=== PATIENT | female | born 1970 ===

== ENCOUNTER 2020-04-24 12:45 | Emergency (ER) | payer MEDICAID ==
[2020-04-24 12:55] VITALS: BP 154/86; PULSE 108
--- NOTE | 2020-04-24 13:10 | EDM.PDOC ---
ED HPI GENERAL MEDICAL PROBLEM - General Chief Complaint: Chest Pain Stated Complaint: COVID SYMPTOMS Time Seen by Provider: 04/24/20 13:00 Source of Information: Reports: Patient History Limitations: Reports: No Limitations - History of Present Illness INITIAL COMMENTS - FREE TEXT/NARRATIVE: sudden onset of burning in the anterior chest at about 10am when she is feeding baby ( works as day care provider) Pain got worse, developed numbness and tingling in the arms and buring turned to tightness in her ankit pt is just recovering from COVID Onset: Today Onset Date: 04/24/20 Onset Time: 10:00 Duration: Getting Worse Location: Reports: Chest Quality: Reports: Burning, Stabbing Severity: Moderate Improves with: Reports: None Worsens with: Reports: None Context: Reports: Activity Associated Symptoms: Reports: No Other Symptoms - Related Data Allergies Allergy/AdvReac Type Severity Reaction Status Date / Time oxycodone Allergy Hives Verified 04/24/20 12:50 sulfamethoxazole Allergy Hives Verified 04/24/20 12:50 [From ] trimethoprim [From ] Allergy Hives Verified 04/24/20 12:50 Home Meds: Home Meds LORazepam [Ativan] 0.5 mg PO Q6HR PRN #10 tablet 04/24/20 [Rx] Sertraline [Zoloft] 25 mg PO DAILY 04/24/20 [History] Past Medical History - Past Health History Medical/Surgical History: Denies Medical/Surgical History Psychiatric History: Reports: Anxiety Social & Family History - Tobacco Use Tobacco Use Status *Q: Current Every Day Tobacco User Years of Tobacco use: 11 Packs/Tins Daily: 0.3 - Caffeine Use Caffeine Use: Reports: Coffee - Recreational Drug Use Recreational Drug Use: No ED ROS GENERAL - Review of Systems Review Of Systems: Comprehensive ROS is negative, except as noted in HPI. ED EXAM, GENERAL - Physical Exam Exam: See Below Exam Limited By: No Limitations General Appearance: Alert, WD/WN, No Apparent Distress Eye Exam: Bilateral Eye: EOMI Ears: Normal External Exam Nose: Normal Inspection Throat/Mouth: Normal Oropharynx Head: Atraumatic, Normocephalic Neck: Supple, Non-Tender, Full Range of Motion Respiratory/Chest: No Respiratory Distress, Lungs Clear, Normal Breath Sounds, Chest Non-Tender Cardiovascular: Normal Peripheral Pulses, Regular Rate, Rhythm, No Edema Peripheral Pulses: 2+: Radial (L), Radial (R) GI/Abdominal: Soft, Non-Tender, No Distention, No Abnormal Bruit Back Exam: Full Range of Motion Extremities: Normal Range of Motion, No Pedal Edema Neurological: Alert, Oriented, CN II-XII Intact, Normal Cognition, Normal Gait, Normal Reflexes, No Motor/Sensory Deficits Psychiatric: Normal Affect, Normal Mood Skin Exam: Warm, Dry, Intact Lymphatic: No Adenopathy #1 Interpretation EKG Date: 04/24/20 Rhythm: NSR [place]: Normal P-Wave: Present QRS: Normal ST-T: Normal QT: Normal Comparison: NA - No Prior EKG Course - Vital Signs Last Recorded V/S: Last Vital Signs Temp 36.7 C 04/24/20 12:54 Pulse 108 H 04/24/20 12:54 Resp 22 H 04/24/20 12:54 BP 154/86 H 04/24/20 12:54 Pulse Ox 100 04/24/20 12:54 - Orders/Labs/Meds Orders: Active Orders 24 hr Category Date Time Status EKG Documentation Completion [RC] ASDIRECTED Care 04/24/20 13:04 Active Sodium Chloride 0.9% [Normal Saline] 1,000 ml Med 04/24/20 13:10 Active IV .BOLUS Sodium Chloride 0.9% [Saline Flush] Med 04/24/20 13:30 Active 10 ml FLUSH ASDIRECTED PRN EKG 12 Lead [EK] Routine Ther 04/24/20 13:04 Ordered Medication Orders Sodium Chloride (Normal Saline) 1,000 mls @ 999 mls/hr IV .BOLUS ONE Stop: 04/24/20 14:10 Last Admin: 04/24/20 13:28 Dose: 999 mls/hr Documented by: ОЛЬГА Sodium Chloride (Saline Flush) 10 ml FLUSH ASDIRECTED PRN PRN Reason: Keep Vein Open Last Admin: 04/24/20 13:31 Dose: 10 ml Documented by: ОЛЬГА Labs: Laboratory Tests 04/24/20 04/24/20 04/24/20 Range/Units 13:15 13:15 13:15 WBC 8.0 (3.0-10.3) x10-3/uL RBC 4.17 (3.60-5.20) x10(6)uL Hgb 13.4 (11.4-15.5) g/dL Hct 40.6 (34.2-48.2) % MCV 97.5 (76.7-100.5) fL MCH 32.1 (23.9-33.9) pg MCHC 32.9 (31.9-34.8) g/dL RDW 14.1 (12.3-16.5) % Plt Count 147 L (151-488) x10(3)uL MPV 9.4 (7.1-12.4) fL Neut % (Auto) 70.2 (30.8-76.2) % Lymph % (Auto) 21.0 (18.4-52.1) % [place] % (Auto) 5.6 (4.4-15.7) % Eos % (Auto) 2.4 (0.6-8.1) % Baso % (Auto) 0.8 (0.2-1.5) % Neut # (Auto) 5.6 (1.5-6.3) x10-3/uL Lymph # (Auto) 1.7 (1.0-4.4) x10-3/uL [place] # (Auto) 0.5 (0.3-1.0) x10-3/uL Eos # (Auto) 0.2 (0.0-0.8) x10-3/uL Baso # (Auto) 0.1 (0.0-0.1) x10-3/uL Sodium 139 (135-145) mmol/L Potassium 4.0 (3.5-5.3) mmol/L Chloride 101 (100-110) mmol/L Carbon Dioxide 26 (21-32) mmol/L BUN 12 (7-18) mg/dL Creatinine 1.1 H (0.55-1.02) mg/dL Est Cr Clr Drug Dosing TNP Estimated GFR (MDRD) 53 L (>60) BUN/Creatinine Ratio 10.9 (9-20) Glucose 115 (80-116) mg/dL Calcium 9.1 (8.6-10.2) mg/dL Total Bilirubin 0.4 (0.1-1.3) mg/dL AST 30 H (5-25) IU/L ALT 37 H (12-36) U/L Alkaline Phosphatase 74 (56-112) IU/L Troponin I 4.2 (4.0-60.3) pg/mL C-Reactive Protein (0.5-0.9) mg/dL Total Protein 7.5 (6.0-8.0) g/dL Albumin 3.9 (3.5-5.2) g/dL Globulin 3.6 g/dL Albumin/Globulin Ratio 1.1 04/24/20 Range/Units 13:15 WBC (3.0-10.3) x10-3/uL RBC (3.60-5.20) x10(6)uL Hgb (11.4-15.5) g/dL Hct (34.2-48.2) % MCV (76.7-100.5) fL MCH (23.9-33.9) pg MCHC (31.9-34.8) g/dL RDW (12.3-16.5) % Plt Count (151-488) x10(3)uL MPV (7.1-12.4) fL Neut % (Auto) (30.8-76.2) % Lymph % (Auto) (18.4-52.1) % [place] % (Auto) (4.4-15.7) % Eos % (Auto) (0.6-8.1) % Baso % (Auto) (0.2-1.5) % Neut # (Auto) (1.5-6.3) x10-3/uL Lymph # (Auto) (1.0-4.4) x10-3/uL [place] # (Auto) (0.3-1.0) x10-3/uL Eos # (Auto) (0.0-0.8) x10-3/uL Baso # (Auto) (0.0-0.1) x10-3/uL Sodium (135-145) mmol/L Potassium (3.5-5.3) mmol/L Chloride (100-110) mmol/L Carbon Dioxide (21-32) mmol/L BUN (7-18) mg/dL Creatinine (0.55-1.02) mg/dL Est Cr Clr Drug Dosing Estimated GFR (MDRD) (>60) BUN/Creatinine Ratio (9-20) Glucose (80-116) mg/dL Calcium (8.6-10.2) mg/dL Total Bilirubin (0.1-1.3) mg/dL AST (5-25) IU/L ALT (12-36) U/L Alkaline Phosphatase (56-112) IU/L Troponin I (4.0-60.3) pg/mL C-Reactive Protein < 0.2 L (0.5-0.9) mg/dL Total Protein (6.0-8.0) g/dL Albumin (3.5-5.2) g/dL Globulin g/dL Albumin/Globulin Ratio Meds: Medications Generic Name Dose Route Start Last Admin Trade Name Freq PRN Reason Stop Dose Admin Sodium Chloride 1,000 mls @ 999 mls/hr 04/24/20 13:10 04/24/20 13:28 Normal Saline IV 04/24/20 14:10 999 mls/hr .BOLUS ONE Administration Sodium Chloride 10 ml 04/24/20 13:30 04/24/20 13:31 Saline Flush FLUSH 10 ml ASDIRECTED PRN Administration Keep Vein Open Discontinued Medications Generic Name Dose Route Start Last Admin Trade Name Freq PRN Reason Stop Dose Admin Aspirin 324 mg 04/24/20 13:06 04/24/20 13:18 Aspirin PO 04/24/20 13:07 324 mg ONETIME ONE Administration Al Hydroxide/Mg Hydroxide 15 0 ml 04/24/20 13:06 04/24/20 13:19 ml/ Lidocaine HCl 15 ml PO 04/24/20 13:07 15 ml ONETIME ONE Administration Pantoprazole Sodium 40 mg 04/24/20 13:05 04/24/20 13:32 Protonix Iv IVPUSH 04/24/20 13:06 40 mg ONETIME ONE Administration - Re-Assessments/Exams Free Text/Narrative Re-Assessment/Exam: 04/24/20 13:49 pt was given Aspirin , GI cocktail and Protonix Burning in chest resolved states she is having more frequent panic attacks , especially at night restarted medication and seems not to be very helpful discussed need to start on prn Ativan or Xanax Departure - Departure Time of Disposition: 14:15 Disposition: Home, Self-Care 01 Condition: Good Clinical Impression: Gastroesophageal reflux disease, Atypical chest pain, Panic disorder Instructions: Panic Attack, [id number] Referrals: Laura Dasivla [employer] [Primary Care Provider] - Forms: ED Department Discharge Additional Instructions: 1) Take Ativan as needed for panic attack Discuss use of it with your PCP 2) Continue with Zoloft , you may need to have dose of medication increased 3) Call with any questions Sepsis Event Note (ED) - Evaluation Sepsis Screening Result: No Definite Risk - Focused Exam Vital Signs: Vital Signs Temp Pulse Resp BP Pulse Ox 04/24/20 12:54 36.7 C 108 H 22 H 154/86 H 100 - My Orders Last 24 Hours: My Active Orders 04/24/20 13:04 EKG Documentation Completion [RC] ASDIRECTED EKG 12 Lead [EK] Routine 04/24/20 13:10 Sodium Chloride 0.9% [Normal Saline] 1,000 ml IV .BOLUS 04/24/20 13:30 Sodium Chloride 0.9% [Saline Flush] 10 ml FLUSH ASDIRECTED PRN - Assessment/Plan Last 24 Hours: My Active Orders 04/24/20 13:04 EKG Documentation Completion [RC] ASDIRECTED EKG 12 Lead [EK] Routine 04/24/20 13:10 Sodium Chloride 0.9% [Normal Saline] 1,000 ml IV .BOLUS 04/24/20 13:30 Sodium Chloride 0.9% [Saline Flush] 10 ml FLUSH ASDIRECTED PRN
[2020-04-24] MEDS: Aspirin 81 MG Tab.Chew PO ONE (13:18)
[2020-04-24] MEDS: Alum Hydroxide/Mag Hydroxide 15 ML, Lidocaine 2% 15 ML PO ONE ×2 (13:19)
[2020-04-24] MEDS: Sodium Chloride 0.9% 1,000 ML IV ONE (13:28)
[2020-04-24] MEDS: Sodium Chloride 0.9% 10 ML Syringe FLUSH PRN (13:31)
[2020-04-24] MEDS: Pantoprazole 40 MG Vial IVPUSH ONE (13:32)
== END 2020-04-24 14:20 | disposition home or self-care (01) ==
LOC: FB.ED 12:45
DX: K21.9 Gastro-esophageal reflux disease without esophagitis (principal); F41.0 Panic disorder [episodic paroxysmal anxiety]; F17.210 Nicotine dependence, cigarettes, uncomplicated; Z88.2 Allergy status to sulfonamides; Z88.5 Allergy status to narcotic agent; Z79.899 Other long term (current) drug therapy
CPT/HCPCS: 36415; 80053; 84484; 85025; 86140; 93005; 96374; 99285-25; A9270-GY; C9113; J7030